=== PATIENT | male | born 2000 | race Caucasian/White ===

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

== ENCOUNTER 2025-07-11 10:30 | Outpatient (CLI) | payer BC, SELFPAY ==
--- OUTSIDE RECORDS SUMMARY | 2024-02-18 06:30 | XMS_ITS ---
Author Organization [facility] Address [facility] [address] [place] [id number] Care Team Providers Care Station Mechanic Name Role Phone Hamida Sanchez Primary Care Provider Ayo Jerome [phone] Allergies Allergen (clinical drug ingredient) Drug/Non Drug Allergy documented on EMR Reaction Allergy Type Onset Date Status cefdinir Cefdinir SOA Drug Allergy Active Penicillin rash Drug Allergy Active REASON FOR VISIT MED CHECK Medications Medication SIG (Take, Route, Frequency, Duration) Notes Start Date End Date Status Escitalopram Oxalate 10 MG 1 tablet Oral ly Once a day; Duration: 30 day(s) 02/18/2024 Active Vital Signs Blood pressure systolic 118 mm Hg 02/18/20 24 Blood pressure diastolic 74 mm Hg 024 Heart Rate 64 /min 02/18/2024 Height 72 in 02/18/2024 Weight 153.6 lbs 02/18/2024 BMI 20.83 kg/m2 02/18/2024 Encounters Encounter Location Date Provider Diagnosis [facility] [address] [place] [address] [place] [id number] 02/18/2024 Ayo Jerome Anxiety F41.9 Assessments Encounter Date Diagnosis (ICD Code) Assessment Notes Treatment Notes Treatment Clinical Notes Section Notes 02/18/2024 Anxiety (ICD-10 - F41.9) Plan Of Treatment Medication Medication Name Sig Start Date Stop Date Notes DULoxetine HCl 30 MG 1 capsule Orally Once a day Escitalopram Oxalate 10 MG 1 tablet Oral ly Once a day; Duration: 30 day(s) 02/18/2024 Next Appt Details Follow Up: 4 Weeks, Reason: Progress Notes * Edmund HATHAWAYOB:2000 (24 yo M)Acc No.[id number]:02/18/2024 Progress Notes Patient: Humza COLLINS Provider: David Jerome M.D. :2000 A ge:23 Y S ex:Male Date:02/18/2024 Address:[address] [place] [address] [place], [place], [id number] Pcp:Hamida Sanchez Subjective: * Chief Complaints: * 1 . MED CHECK. * HPI: P sychology: 23 year old male presents with c/o Anxiety P t here to f/u on anxiety. States he is having side effects from Cymbalta, nightmares and night sweats . Pt states he is continuing to have anxiety, he does not want to do anything and he is tired all the time.? * ROS: D ERMATOLOGY: no R demetris. n o H terese. G ASTROENTEROLOGY: no N ausea. n o V omiting. U ROLOGY: no D ifficulty urinating. n o B lood in urine. * Medical History: M edical History Verified. * Surgical History: D enies Past Surgical History. * Hospitalization/Major Diagno stic Procedure: R T Calf Sutures- [facility] ER 02/2019. * Family History: F ather: alive. M other: alive. 1 sister(s) - healthy. . * Social History: C URRENT TOBACCO USE S moking Status: Patient does NOT smoke, Second hand smoke exposure: No. * Medications: T aking DULoxetine HCl 30 MG Capsule Delayed Release Particles 1 capsule Orally Once a day , Medication List reviewed and reconciled with the patient * Allergies: P enicillin: rash, Cefdinir: SOA. Objective: * Vitals: W t:153.6, Temp:97.8, BP:118/74, HR:64, O2 Sat:99% on RA, Nurse:jose carlos, Ht: 72, BMI:20.83. * Examination: P sychology: General Appearance: N AD. G rooming : a dequate.?Eye contact : mag Guidry ood : karen sterling. Assessment: * Assessment: 1. A nxiety - F41.9 (Primary) Plan: * Treatment: * Follow Up: 4 Weeks * Images: Billing Information: * Visit Code: 09211 Office Visit, Est Pt., Level 3. * Procedure Codes: * Electronic signature of Shagufta Jerome MD on 07/12/2025 at 11:03 AM EDT Sign off status: Pending * Provider: David Jerome M.D. Date: 02/18/2024 Generated for Fredy avila/Donal/Daytonransmitting on: 07/12/2025 11:03 AM EDT History and Physical Notes * HPI (History of Present Illness) Category Sub-Category Detail Notes Category Not es Psychology Anxiety Pt here to f/u o n anxiety. States he is having side effects from Cymbalta, nightmares and night sweats . Pt states he is continuing to have anxiety, he does not want to do anything and he is tired all the time Examination Category Sub-Category Detail Notes Category Not es Psychology General Appearance: NAD Grooming : adequate Eye contact : normal Mood : pleasant
--- OUTSIDE RECORDS SUMMARY | 2024-03-17 06:15 | XMS_ITS ---
Author Organization [facility] Address [address] [facility] 36 [facility] [address] [place] [id number] Care Team Providers Care Calender Wind Up Helper Name Role Phone Hamida Sanchez Primary Care Provider [phone] Ayo Jerome Unavailable [phone] Allergies Allergen (clinical drug ingredient) Drug/Non Drug Allergy documented on EMR Reaction Allergy Type Onset Date Status cefdinir Cefdinir SOA Drug Allergy Active Penicillin rash Drug Allergy Active Reason For Referral Diagnosis 1 Decreased attention Span (R41.840) Referral Organization [facility] Referring Provider First Name Ayo Referring Provider Last Name Justus Referring Provider Speciality Family Pra ctice Referred Organization [facility] OP Referred Provider Mary Ellen Braga Referred Address [address] [facility] 36 [facility] [id number], Referred Provider Specialty Psychiatry Referral Priority Routine REASON FOR VISIT 4 week follow up Medications Medication SIG (Take, Route, Frequency, Duration) Notes Start Date End Date Status Escitalopram Oxalate 10 MG 1 tablet Oral ly Once a day; Duration: 90 days 02/18/2024 Active Problems Problem Type SNOMED Code ICD Code Onset Dates Problem Status W/U Status Risk Notes Problem Decreased attention Span (R41.840) Active confirmed Vital Signs Blood pressure systolic 114 mm Hg 03/17/20 24 Blood pressure diastolic 72 mm Hg 024 Heart Rate 70 /min 03/17/2024 Height 72 in 03/17/2024 Weight 153 lbs 03/17/2024 BMI 20.75 kg/m2 03/17/2024 Encounters Encounter Location Date Provider Diagnosis [facility] [address] [facility] [address] [place] [phone] 03/17/2024 Ayo Jerome Anxiety F41.9 and Decreased attention Span R41.840 Assessments Encounter Date Diagnosis (ICD Code) Assessment Notes Treatment Notes Treatment Clinical Notes Section Notes 03/17/2024 Anxiety (ICD-10 - F41.9) 03/17/2024 Decreased attention Span (ICD-10 - R41.840) Plan Of Treatment Medication Medication Name Sig Start Date Stop Date Notes Escitalopram Oxalate 10 MG 1 tablet Oral ly Once a day; Duration: 90 days 02/18/2024 Referrals Referral Date Details 03/17/2024 03/17/2024, Mary Ellen trevino, [address] [facility], [place], [id number], Next Appt Details Follow Up: 3 Months, Reason: Progress Notes * Parag HATHAWAYGatitoOB:2000 (24 yo M)Acc No.[id number]:03/17/2024 Progress Notes Patient: Humza COLLINS Provider: David Jerome M.D. :2000 A ge:23 Y S ex:Male Date:03/17/2024 Address:[address] [place] [address], [place], [id number] Pcp:Hamida Sanchez Subjective: * Chief Complaints: * 1 . 4 week follow up. * HPI: P sychology: 23 year old male presents with c/o Anxiety P t here for 1 mo f/u on anxiety, states he feels like Lexapro is helping with anxiety but he is still having issues with being able to focus. * ROS: D ERMATOLOGY: no R demetris. n o H terese. G ASTROENTEROLOGY: no N ausea. n o V omiting. U ROLOGY: no D ifficulty urinating. n o B lood in urine. * Medical History: M edical History Verified. * Surgical History: D enies Past Surgical History. * Hospitalization/Major Diagno stic Procedure: R T Calf Sutures- [facility] ER 02/2019. * Family History: F ather: alive. M other: alive. 1 sister(s) - healthy. . * Social History: C URRENT TOBACCO USE S moking Status: Patient does NOT smoke, Second hand smoke exposure: No. * Medications: T aking Escitalopram Oxalate 10 MG Tablet 1 tablet Orally Once a day , Medication List reviewed and reconciled with the patient * Allergies: P enicillin: rash, Cefdinir: SOA. Objective: * Vitals: W t:153, Temp:97.9, BP:114/72, HR:70, Nurse:jose carlos, Ht: 72, BMI:20.75. * Examination: P sychology: General Appearance: N AD. G rooming : a dequate.?Eye contact : n ormal. M ood : karen sterling. Assessment: * Assessment: 1. A nxiety - F41.9 (Primary) 2 . D ecreased attention Span - R41.840 ? Plan: * Treatment: 2. D ecreased attention Span Referral To:Mary Ellen Braga Psychiatry Reason: * Follow Up: 3 Months * Images: Billing Information: * Visit Code: 03805 Office Visit, Est Pt., Level 3. * Procedure Codes: * Electronic signature of Shagufta Jerome MD on 07/12/2025 at 11:02 AM EDT Sign off status: Pending * Provider: David Jerome M.D. Date: 0 03/17/2024 Generated for Fredy avila/Donal/Bennysmitting on: 0 07/12/2025 11:02 AM EDT History and Physical Notes * HPI (History of Present Illness) Category Sub-Category Detail Notes Category Not es Psychology Anxiety Pt here for 1 mo f/u on anxiety, states he feels like Lexapro is helping with anxiety but he is still having issues with being able to focus Examination Category Sub-Category Detail Notes Category Not es Psychology General Appearance: NAD Grooming : adequate Eye contact : normal Mood : pleasant Consultation Request Notes Referral Date Referring Provider Referred Provider Not radha 03/17/2024 Ayo Jerome Laura
--- OUTSIDE RECORDS SUMMARY | 2024-05-03 11:00 | XMS_ITS ---
Author Organization [facility] Address [address] [place] [id number] Care Team Providers Care Mail Handler Assistant Name Role Phone Hamida Sanchez Primary Care Provider Ayo Jerome Unavailable [phone] Allergies Allergen (clinical drug ingredient) Drug/Non Drug Allergy documented on EMR Reaction Allergy Type Onset Date Status cefdinir Cefdinir SOA Drug Allergy Active Penicillin rash Drug Allergy Active Results Component Value Reference Range Notes CBC Fingerstick (in house) Reviewed date:05/04/2024 01:03:56 PM Interpretation: Performing Lab: Notes/Report: wbc 8.4 3.5 - 10 lym 19.9% 15 - 50 mid 5.1% 2 - 15 gran 75.0% 35 - 80 rbc 4.53 3.5 - 5.5 hgb 13.8 11.5 - 16.5 hct 41.5 35 - 55 mcv 91.6 75 - 100 mch 30.4 25 - 35 mchc 33.2 31 - 38 plat 217 100 - 400 REASON FOR VISIT sinus infection Medications Medication SIG (Take, Route, Frequency, Duration) Notes Start Date End Date Status Escitalopram Oxalate 10 MG 1 tablet Oral ly Once a day; Duration: 90 days 02/18/2024 Active Zithromax Z-Nikko 250 MG as directed Orall y once daily; Duration: 5 day(s) 05/03/2024 Active Vital Signs Blood pressure systolic 110 mm Hg 05/03/20 24 Blood pressure diastolic 70 mm Hg 024 Heart Rate 75 /min 05/03/2024 Height 72 in 05/03/2024 Weight 155.2 lbs 05/03/2024 BMI 21.05 kg/m2 05/03/2024 Encounters Encounter Location Date Provider Diagnosis [facility] [address] [place] [id number] 05/03/2024 Ayo Jerome Acute URI J06.9 Assessments Encounter Date Diagnosis (ICD Code) Assessment Notes Treatment Notes Treatment Clinical Notes Section Notes 05/03/2024 Acute URI (ICD-10 - J06.9) Plan Of Treatment Medication Medication Name Sig Start Date Stop Date Notes Zithromax Z-Nikko 250 MG as directed Orall y once daily; Duration: 5 day(s) 05/03/2024 Next Appt Details Follow Up: prn, Reason: Progress Notes * Edmund HATHAWAYOB:2000 (24 yo M)Acc No.[id number]:05/03/2024 Progress Notes Patient: Humza COLLINS Provider: David Jerome M.D. :2000 A ge:23 Y S ex:Male Date:05/03/2024 Address:[address] [place] [address] [place], [place], [id number] Pcp:Hamida Sanchez Subjective: * Chief Complaints: * 1 . Sinus infection. * HPI: E NT/respiratory: 23 year old male presents with c/o cough P t complains of greenish yellow sputum production cough since Friday. Associated with sore throat, headache, nasal congestion and drainage. Denies : Fever. D enies : body aches. * ROS: D ERMATOLOGY: no R demetris. n o H terese. G ASTROENTEROLOGY: no N ausea. n o V omiting. U ROLOGY: no D ifficulty urinating. n o B lood in urine. * Medical History: M edical History Verified. * Surgical History: D enies Past Surgical History. * Hospitalization/Major Diagno stic Procedure: R T Calf Sutures- [facility] ER 02/2019. * Family History: F [...] rash, Cefdinir: SOA. Objective: * Vitals: W t:155.2, Temp:98.3, BP:110/70, HR:75, O2 Sat:98% on RA, Nurse:jose carlos, Ht: 72, BMI:21.05. * Examination: E NT/Respiratory: General Appearance: N AD. E yes: P ERRLA, sclera clear. O ral cavity : erythema without exudate on pharynx. N leeroy : n o cervical lymphadenopathy. H eart : R RR, normal S1 S2. L ungs: c lear to auscultation bilaterally. Assessment: * Assessment: 1. Silvia rizvi URI - J06.9 (Primary) Plan: * Treatment: Value Reference Range w bc 8.4 3.5 - 10 * l ym 19.9% 15 - 50 * m id 5.1% 2 - 15 * g ran 75.0% 35 - 80 * r bc 4.53 3.5 - 5.5 * h gb 13.8 11.5 - 16.5 * h ct 41.5 35 - 55 * m cv 91.6 75 - 100 * m ch 30.4 25 - 35 * m chc 33.2 31 - 38 * p lat 217 100 - 400 * Michelle Ordonez 05/03/2024 3:13:29 PM > , Provider reviewed results while patient in office. * Procedure Codes: 3 6416 CAPILLARY BLOOD DRAW, 38179 CBC WITH AUTO DIFF * Follow Up: p rn * Images: Billing Information: * Visit Code: 15562 Office Visit, Est Pt., Level 3. * Procedure Codes: 66723 CAPILLARY BLOOD DRAW. 13695 CBC WITH AUTO DIFF. * Electronic signature of Shagufta Jerome MD on 07/12/2025 at 11:03 AM EDT Sign off status: Pending * Provider: David Jerome M.D. Date: 05/03/2024 Generated for Nikoi margarita/Donal/eTmercyitting on: 07/12/2025 11:03 AM EDT History and Physical Notes * HPI (History of Present Illness) Category Sub-Category Detail Notes Category Not es ENT/respiratory cough Pt complains of greenish yellow sputum production cough since Friday. Associated with sore throat, headache, nasal congestion and drainage Fever body aches Examination Category Sub-Category Detail Notes Category Not es ENT/Respiratory Oral cavity : erythema without exudate on pharynx Neck : no cervical lymphade nopathy Heart : RRR, normal S1 S2 Lungs: clear to auscultatio n bilaterally General Appearance: NAD Eyes: PERRLA, sclera clear
--- OUTSIDE RECORDS SUMMARY | 2024-06-17 07:30 | XMS_ITS ---
Author Organization [facility] Address [address] [facility] [address] [place] [phone] Care Team Providers Care Ostrich Farmer Name Role Phone Hamida Sanchez Primary Care Provider Ayo Jerome [phone] Allergies Allergen (clinical drug ingredient) Drug/Non Drug Allergy documented on EMR Reaction Allergy Type Onset Date Status cefdinir Cefdinir SOA Drug Allergy Active Penicillin rash Drug Allergy Active REASON FOR VISIT 3 months Medications Medication SIG (Take, Route, Frequency, Duration) Notes Start Date End Date Status Escitalopram Oxalate 10 MG 1 tablet Oral ly Once a day 02/18/2024 Active Vital Signs Blood pressure systolic 120 mm Hg 06/17/20 24 Blood pressure diastolic 76 mm Hg 024 Heart Rate 85 /min 06/17/2024 Height 72 in 06/17/2024 Weight 157 lbs 06/17/2024 BMI 21.29 kg/m2 06/17/2024 Encounters Encounter Location Date Provider Diagnosis [facility] [address] [place] [phone] 06/17/2024 Ayo Jerome Anxiety F41.9 Assessments Encounter Date Diagnosis (ICD Code) Assessment Notes Treatment Notes Treatment Clinical Notes Section Notes 06/17/2024 Anxiety (ICD-10 - F41.9) Plan Of Treatment Medication Medication Name Sig Start Date Stop Date Notes Escitalopram Oxalate 10 MG 1 tablet Orally Once a day 02/08 Next Appt Details Follow Up: 4 Months, Reason: Progress Notes * Dilma HATHAWAY:2000 (24 yo M)Acc No.[id number]:06/17/2024 Progress Notes Patient: Humza COLLINS Provider: David Jerome M.D. :2000 A ge:23 Y S ex:Male Date:06/17/2024 Address:[address] [place] [address] [facility] [place], [id number] Pcp:Hamida Sanchez Subjective: * Chief Complaints: * 1 . 3 months. * HPI: P sychology: 23 year old male presents with c/o Anxiety P t here to f/u on anxiety, states he is still having issues but he does not take Lexapro every day becuase he forgets to take it. * ROS: D ERMATOLOGY: no R demetris. n o H terese. G ASTROENTEROLOGY: no N ausea. n o V omiting. U ROLOGY: no B lood in urine. n o F requent urination. ? * Medical History: M edical History Verified. * Surgical History: D enies Past Surgical History. * Hospitalization/Major Diagno stic Procedure: R T Calf Sutures- [facility] ER 02/2019. * Family History: F ather: alive. M other: alive. 1 sister(s) - healthy. . * Social History: C URRENT TOBACCO USE S moking Status: Patient does NOT smoke, Second hand smoke exposure: No. * Medications: T aking Escitalopram Oxalate 10 MG Tablet 1 tablet Orally Once a day , Discontinued Zithromax Z-Nikko 250 MG Tablet as directed Orally once daily , Medication List reviewed and reconciled with the patient * Allergies: P enicillin: rash, Cefdinir: SOA. Objective: * Vitals: W t:157, Temp:98.1, BP:120/76, HR:85, Nurse:jose carlos, Ht: 72, BMI:21.29. * Examination: P sychology: General Appearance: N AD. G rooming : a dequate.?Eye contact : mag harrison. M ood : p leasant. Assessment: * Assessment: 1. A nxiety - F41.9 (Primary) Plan: * Treatment: * Follow Up: 4 Months * Images: Billing Information: * Visit Code: 90401 Office Visit, Est Pt., Level 3. * Procedure Codes: * Electronic signature of Shagufta Jerome MD on 07/12/2025 at 11:02 AM EDT Sign off status: Pending * Provider: Dvaid Jerome M.D. Date: 06/17/2024 Generated for Nikoi ng/Donal/eTransmitting on: 07/12/2025 11:02 AM EDT History and Physical Notes * HPI (History of Present Illness) Category Sub-Category Detail Notes Category Not es Psychology Anxiety Pt here to f/u o n anxiety, states he is still having issues but he does not take Lexapro every day becuase he forgets to take it Examination Category Sub-Category Detail Notes Category Not es Psychology General Appearance: NAD Grooming : adequate Eye contact : normal Mood : pleasant
--- OUTSIDE RECORDS SUMMARY | 2024-10-15 06:30 | XMS_ITS ---
Author Organization [facility] Address [address] [facility] 36 [facility] [address] [place] [id number] Care Team Providers Care Field Kiln Burner Name Role Phone Hamida Sanchez Primary Care Provider [phone] Ayo Jerome [phone] REASON FOR VISIT 4 months Encounters Encounter Location Date Provider Diagnosis [facility] [facility] 36 [facility] [address] [place] [phone] 10/15/2024 Ayo Jerome Plan Of Treatment No Information Progress Notes * Edmund HATHAWAYOB:2000 (24 yo M)Acc No.[id number]:10/15/2024 Progress Notes Patient: Humza COLLINS Provider: David Jerome M.D. :2000 A ge:24 Y S ex:Male Date:10/15/2024 Address:[facility] [address], [id number] Pcp:Hamida Sanchez Subjective: * Chief Complaints: * 1 . 4 months. * Medical History: Objective: * Vitals: Assessment: Plan: * Treatment: * Images: Billing Information: * Visit Code: * Procedure Codes: * Electronic signature of Shagufta Jerome MD on 07/12/2025 at 11:02 AM EDT Sign off status: Pending * Provider: David Jerome M.D. Date: 12/16/2023 Generated for Printi ng/Faxing/eTransmitting on: 0 07/12/2025 11:02 AM EDT
[2025-07-11 21:07] LABS: Coronavirus 19, PCR Not Detected (NotDetected); Influenza A, PCR Not Detected (NotDetected); Influenza B, PCR Not Detected (NotDetected)
--- OUTSIDE RECORDS SUMMARY | 2025-07-12 11:02 | XMS_ITS | Clinical Summary ---
Author Organization [facility] Address [address] [place] [address] Care Team Providers Care Rolls Mill Operator Name Role Phone Ayo Jerome MD Primary Care Provider [phone] Allergies Active Allergy Reactions Criticality Noted Date Comments Cefdinir Unknown - Patient st ates they do not know rxn details Low 12/25/2012 Penicillins Unknown - Patient st ates they do not know rxn details Low 12/25/2012 Medications No known medications Family History Medical History Relation Name Comments Conversions - Other Mother Murmurs Coronary artery disease Other Conversions - Other Sister Ventricu lar Septal Defect Relation Name Status Comments Mother Other Sister Social History Tobacco Use Types Packs/Day Years Used Date Smoking Tobacco: Never Smokeless Tobacco: Never Alcohol Use Standard Drinks/Week Comments Never 0 (1 standard drink = 0.6 oz pur e alcohol) Sex and Gender Information Value Date Recorded Sex Assigned at Not on file Legal Sex Male 6:07 PM EDT Gender Identity Not on file Sexual Orientation Not on file Last Filed Vital Signs Vital Sign Reading Time Taken Comments Blood Pressure 115/47 09/07/2021 1:55 PM EDT Pulse 53 09/07/2021 1:55 PM EDT Temperature 36.6 C (97.8 F) 08/31/2021 7:35 AM EDT Respiratory Rate 16 08/31/2021 7:35 AM EDT Oxygen Saturation 98% 08/31/2021 7:35 AM EDT Inhaled Oxygen Concentration - - Weight 71.7 kg (158 lb) 09/07/2021 1:55 PM EDT Height 182.9 cm (6') 09/07/2021 1:55 PM EDT Body Mass Index 21.43 09/07/2021 1:55 PM EDT Plan of Treatment Health Maintenance Due Date Last Done Comments [facility]-Depression Screening 2002 [facility]-/Child/Adol SDOH Screenings 2002 [facility]- SDOH Screenings 2020 [facility]-Adult SDOH Screenings 2020 [facility]-DTaP,Tdap,and Td Vaccines (6 - Td or Tdap) 02/24/2024 02/23/2014, 02/25/2007, 05/08/2004, Additional history exists [id number] Vaccine ( season) 2024 [facility]-Influenza Vaccine (#1) 2025 [facility]-Zoster Vaccines (1 of 2) 2052 02/25/2007, 01/26/2004 [facility]-Hepatitis B Vaccines Completed 003, 2002, 2002 [facility]-Pneumococcal Vaccine: Pediatrics (0 to 5 Years) and At-Risk Patients (6 to 49 Years) Completed 09/20/2003, 03/15/2003, 01/13/2003, Additional history exists [facility]-HIB Vaccines Completed 05/08/2004, 04/2003, 01/13/2003, Additional history exists [facility]-IPV Vaccines Completed 02/25/2007, 09/2003, 01/13/2003, Additional history exists [facility]-Varicella Vaccines Completed 02/25/2007, 2003 [facility]-Hepatitis A Vaccines Completed 03/01/2008, 02/08 HPV Vaccines Completed 01/12/2018, 06/14/2017 [facility]-Rotavirus Vaccines Aged Out No lo nger eligible based on patient's age to complete this topic Insurance [facility] JULIAN BARAJAS [place] [id number] [place] Care Teams Rolls Mill Operator Relationship Specialty Start Date End Date Ayo Jerome MD [address] [place] [phone] PCP - General 08/30/21
--- OUTSIDE RECORDS SUMMARY | 2025-07-12 11:03 | XMS_ITS | Patient Health Record ---
Author Organization [facility] Address [address] [place] [id number] Care Team Providers Care Title I Math Tutor Name Role Phone Hamida Sanchez Primary Care Provider [phone] Brady Jeromeian Unavailable [phone] Allergies Allergen (clinical drug ingredient) Drug/Non Drug Allergy documented on EMR Reaction Allergy Type Onset Date Status cefdinir Cefdinir SOA Drug Allergy Active Penicillin rash Drug Allergy Active Reason For Referral No Information Medications Medication SIG (Take, Route, Frequency, Duration) Notes Start Date End Date Status Escitalopram Oxalate 10 MG 1 tablet Oral ly Once a day 02/18/2024 Active Immunizations Vaccine Route Administration Date Status Comme nts Fluzone Quad (6months&older) Unknown 07/26/2023 Administered Fluzone PF Quad (6-35 months) Unknown 08/09/2022 Administered COVID 19 Moderna Unknown 06/10/2022 Administered COVID 19 Pfizer Unknown 10/30/2021 Administered Gardasil 9 Unknown 01/12/2018 Administered Gardasil 9 Unknown 06/14/2017 Administered Hep A- Pediatric Unknown 03/01/2008 Administered Hep A- Pediatric Unknown 02/25/2007 Administered IPV Unknown 02/25/2007 Administered IPV Unknown 09/20/2003 Administered IPV Unknown 01/13/2003 Administered IPV Unknown 2002 Administered Menactra IM Intramuscular 06/21/2019 Administered MMR Unknown 01/26/2004 Administered ppd ID Intradermal 11/06/2021 Administered Prevnar (PCV13) Unknown 09/20/2003 Administered Prevnar (PCV13) Unknown 03/15/2003 Administered Prevnar (PCV13) Unknown 03/15/2003 Administered Prevnar (PCV13) Unknown 01/13/2003 Administered Prevnar (PCV13) Unknown 01/13/2003 Administered Prevnar (PCV13) Unknown 2002 Administered ProQuad Unknown 02/25/2007 Administered Tetanus Dtap-Daptacel (under 7yrs) Unknown 02/25/2007 Administered Tetanus Dtap-Daptacel (under 7yrs) Unknown 05/08/2004 Administered Tetanus Dtap-Daptacel (under 7yrs) Unknown 01/13/2003 Administered Tetanus Dtap-Daptacel (under 7yrs) Unknown 2002 Administered Tetanus Tdap-Adacel (over 7yrs) Unknown 02/23/2014 Administered Varivax Unknown 01/26/2004 Administered Problems Problem Type SNOMED Code ICD Code Onset Dates Problem Status W/U Status Risk Notes Problem Anxiety (53791805) Anxiety (F41.9) Active confirmed Problem Decreased attention Span (R41.840) Active confirmed Plan Of Treatment Pending Test Test Name Order Date H-COVIDPCR 10/03/2021 Insurance Providers Payer Name Payer Address Payer Phone Subscriber Number Group Number Insured Name Patient Relationship to Insured Coverage Start Date Coverage End Date [employer] [address] [place] [address] [id number] Humza Magana Self - patient is the insured Medical (General) History Surgical History Surgery Date(Month/Year) Hospitalization History Reason Date(Month/Year) RT Calf Sutures- [facility] ER 02/2019
== END 2025-07-11 23:59 ==
LOC: LAB.DROPOF 07-12 10:23
PROVIDERS: PCP Student in an Organized Health Care Education/Training Program; Visit Provider Student in an Organized Health Care Education/Training Program
DX: J06.9 Acute upper respiratory infection, unspecified (principal)
CPT/HCPCS: 87631